=== PATIENT | female | born 1990 | race Caucasian/White ===

== ENCOUNTER 2017-08-02 13:49 | Emergency (ER) | payer OTHER, MEDICAID ==
[~2017-08-02] VITALS: Ht 167.6 cm; Wt 59.0 kg
[~2017-08-02 13:49] MED LIST: BACTRIM DS TAB1 EACH PO; CEPHALEXIN 500500 M3 PO; CIPROFLOXACIN500 M1 PO; FLEXERIL PO; HYDRALAZINE 10M10 MG PO; HYDROCODONE-APA1 TA1 PO; HYDROXYZINE HCL25 M1 PO; KEFLEX250 MG PO; NORCO 5-325 TA1 EAC1 PO; PYRIDIUM200 MG PO
[2017-08-02 13:58] VITALS: BP 109/84
== END 2017-08-02 14:27 | disposition home or self-care (01) ==
LOC: M.ERS 13:49
DX: L30.4 Erythema intertrigo (principal); Z32.02 Encounter for pregnancy test, result negative; F41.9 Anxiety disorder, unspecified; F17.210 Nicotine dependence, cigarettes, uncomplicated; Z90.89 Acquired absence of other organs

== ENCOUNTER 2017-08-11 18:47 | Emergency (ER) | payer BC, OTHER, MEDICAID ==
[~2017-08-11] VITALS: Ht 167.6 cm; Wt 59.0 kg
[2017-08-11 19:53] VITALS: BP 120/66
--- NOTE | 2017-08-12 15:23 | EKG ---
[place] [address] ELECTROCARDIOGRAM REPORT Name: JAVIER ARBOLEDA Room: [facility]#: [id number] Admission: 08/11/17 Attend Phys: Discharge: 08/11/17 Date of : [birth year] Report #: [id number] THIS REPORT FOR: //name// [facility] ED Test Date: 2017-08-11 Test Time: 18:53:10 Pat Name: JAVIER ARBOLEDA Department: Room: Gender: F Vest Baster: 9 : 1990 Requested By: Eladio Linn Order Number: [id number] MD: Marc Moss Measurements Intervals [place] Rate: 70 P: 3 [place]: 124 QRS: 49 QRSD: 79 T: 41 QT: 360 QTc: 389 Interpretive Statements Sinus rhythm Baseline wander in lead(s) V6 Compared to ECG 07/05/2014 10:01:03 Short [place] interval no longer present Electronically Signed On 08-12-2017 15:23:17 CDT by Marc Moss [email or web address] <ELECTRONICALLY SIGNED> By: Marc Moss MD, [facility] 08/12/17 1523 52 52 Marc Moss MD, FACC /EPI
== END 2017-08-11 19:54 | disposition home or self-care (01) ==
LOC: M.ERS 18:47
DX: R07.9 Chest pain, unspecified (principal)

== ENCOUNTER 2017-12-21 02:14 | Emergency (ER) | payer BC, OTHER, MEDICAID ==
[~2017-12-21] VITALS: Ht 167.6 cm; Wt 54.4 kg
[2017-12-21 02:22] VITALS: BP 136/78
[2017-12-21] MEDS ORDERED: PENICILLIN VK250 MG PO (02:31)
[2017-12-21] MEDS ORDERED: NORCO 5-325 TA1 EACH PO (02:31)
== END 2017-12-21 02:41 | disposition home or self-care (01) ==
LOC: M.ERS 02:14
DX: K08.89 Other specified disorders of teeth and supporting structures (principal); F41.9 Anxiety disorder, unspecified; F17.210 Nicotine dependence, cigarettes, uncomplicated

== ENCOUNTER 2017-12-23 10:29 | Emergency (ER) | payer BC, OTHER, MEDICAID ==
[~2017-12-23] VITALS: Ht 167.6 cm; Wt 54.4 kg
[~2017-12-23 10:29] MED LIST changes: +NORCO 5-325 TA1 EACH PO; +PENICILLIN VK250 MG PO
[2017-12-23 10:38] VITALS: BP 100/55
== END 2017-12-23 10:49 | disposition home or self-care (01) ==
LOC: M.ERS 10:29
DX: Z71.1 Person with feared health complaint in whom no diagnosis is made (principal); F17.210 Nicotine dependence, cigarettes, uncomplicated; F41.9 Anxiety disorder, unspecified

== ENCOUNTER 2018-04-21 09:13 | Emergency (ER) | payer BC ==
[~2018-04-21] VITALS: Ht 167.6 cm; Wt 52.6 kg
[2018-04-21] MEDS ORDERED: VALIUM5 MG PO (09:56)
[2018-04-21] MEDS ORDERED: ACETAMINOPHEN-1 EAC1 PO (09:56)
[2018-04-21] MEDS ORDERED: MOBIC15 MG PO (09:56)
[2018-04-21 10:18] VITALS: BP 108/68
== END 2018-04-21 10:19 | disposition home or self-care (01) ==
LOC: M.ERS 09:13
DX: S16.1XXA Strain of muscle, fascia and tendon at neck level, initial encounter (principal); F41.9 Anxiety disorder, unspecified; F17.210 Nicotine dependence, cigarettes, uncomplicated; Z90.49 Acquired absence of other specified parts of digestive tract; W01.0XXA Fall on same level from slipping, tripping and stumbling without subsequent striking against object, initial encounter; Y93.89 Activity, other specified; Y92.89 Other specified places as the place of occurrence of the external cause; Y99.8 Other external cause status

== ENCOUNTER 2018-05-17 01:11 | Emergency (ER) | payer BC ==
[~2018-05-17] VITALS: Ht 167.6 cm; Wt 52.6 kg
[~2018-05-17 01:11] MED LIST changes: +ACETAMINOPHEN-1 EAC1 PO; +MOBIC15 MG PO; +VALIUM5 MG PO
[2018-05-17] MEDS ORDERED: IBUPROFEN 800800 MG PO (02:06)
[2018-05-17 02:19] VITALS: BP 95/60
== END 2018-05-17 02:21 | disposition home or self-care (01) ==
LOC: M.ERS 01:11
DX: S60.211A Contusion of right wrist, initial encounter (principal); F41.9 Anxiety disorder, unspecified; F17.210 Nicotine dependence, cigarettes, uncomplicated; Z98.890 Other specified postprocedural states; W25.XXXA Contact with sharp glass, initial encounter; Y93.89 Activity, other specified; Y92.89 Other specified places as the place of occurrence of the external cause; Y99.8 Other external cause status

== ENCOUNTER 2018-06-17 12:50 | Emergency (ER) | payer OTHER ==
[~2018-06-17] VITALS: Ht 167.6 cm; Wt 49.4 kg
[~2018-06-17 12:50] MED LIST changes: +IBUPROFEN 800800 MG PO
[2018-06-17 13:31] LABS: ABSOLUTE BASOPHILS 0.1 thou/uL (0.0-0.2); ABSOLUTE EOSINOPHILS 0.1 thou/uL (0.0-0.7); ABSOLUTE LYMPHOCYTES 2.2 thou/uL (0.8-5.3); ABSOLUTE MONOCYTES 0.3 thou/uL (0.0-1.2); ABSOLUTE NEUTROPHILS 3.9 thou/uL (1.6-8.1); BASOPHILS 0.7 %; EOSINOPHILS 1.6 %; HEMATOCRIT 39.1 % (37.0-47.0); LYMPHOCYTES 33.6 %; MCHC 33.2 g/dL (28.0-37.0); MCV 81.3 fL (80.0-100.0); MPV 8.4 fl. (7.2-11.1); NUCLEATED RBCS 0 /100WBC; PLATELET COUNT* 322 thou/uL (150-400); POLYS 59.1 %; RDW-CV 15.6 % (10.5-14.5); WBC 6.7 thou/uL (4.0-11.0)
[2018-06-17 13:40] LABS: ANION GAP 6 mmol/L (7-16); BUN 8 mg/dL (7-18); CHLORIDE 105 mmol/L (98-107); CO2 28 mmol/L (21-32); CREATININE 0.9 mg/dL (0.6-1.3); GLUCOSE 85 mg/dL (70-99); POTASSIUM 3.3 mmol/L (3.5-5.1); SODIUM 139 mmol/L (136-145)
[2018-06-17 13:46] LABS: ALBUMIN 3.9 g/dL (3.4-5.0); ALKALINE PHOSPHATASE 41 U/L (46-116); LIPASE 143 U/L (73-393); MAGNESIUM 1.8 mg/dL (1.8-2.4); SGOT 13 U/L (15-37); SGPT 20 U/L (30-65); TOTAL BILIRUBIN 0.5 mg/dL (<0.1-1.0)
[2018-06-17 14:00] LABS: TROPONIN-I LEVEL <0.06 ng/mL (<0.06)
[2018-06-17 14:58] VITALS: BP 111/78
--- NOTE | 2018-06-17 15:01 | EKG ---
[place] [address] ELECTROCARDIOGRAM REPORT Name: NKECHIJAVIER [id number] Admission: 06/17/18 Attend Phys: Discharge: 06/17/18 Date of : [birth year] Report #: [id number] THIS REPORT FOR: //name// [facility] ED Test Date: 2018-06-17 Test Time: 12:55:46 Pat Name: JAVIER ARBOLEDA Department: Room: Gender: F Carriage Feeder: ALFONSO : 1990 Requested By: Haresh Smith Order Number: [id number] MD: Khoi Granado Measurements Intervals [place] Rate: 68 P: -30 [place]: 121 QRS: 52 QRSD: 72 T: 43 QT: 388 QTc: 413 Interpretive Statements Sinus rhythm Compared to ECG 08/11/2017 18:53:10 No significant changes Electronically Signed On 06-17-2018 15:01:41 [facility] by Khoi Granado [email or web address] <ELECTRONICALLY SIGNED> By: Khoi Granado MD, [facility] 06/17/18 1501 1255 1255 Khoi Granado MD, FACC /EPI
== END 2018-06-17 14:58 | disposition home or self-care (01) ==
LOC: M.ERS 12:50
PROVIDERS: Emergency Medicine Emergency Medical Services
DX: R07.89 Other chest pain (principal); F41.9 Anxiety disorder, unspecified; F17.210 Nicotine dependence, cigarettes, uncomplicated; Z98.890 Other specified postprocedural states

== ENCOUNTER 2020-03-01 10:02 | Emergency (ER) | payer OTHER, MEDICAID ==
[~2020-03-01] VITALS: Ht 167.6 cm; Wt 52.2 kg
[2020-03-01 10:52] VITALS: BP 114/66
== END 2020-03-01 10:53 | disposition home or self-care (01) ==
LOC: M.ERS 10:02
DX: N64.89 Other specified disorders of breast (principal); F17.210 Nicotine dependence, cigarettes, uncomplicated; Z90.49 Acquired absence of other specified parts of digestive tract; Z90.89 Acquired absence of other organs

== ENCOUNTER 2021-01-03 01:27 | Emergency (ER) | payer OTHER, MEDICAID ==
[~2021-01-03] VITALS: Ht 167.6 cm; Wt 54.4 kg
[2021-01-03] MEDS ORDERED: AMITRIPTYLINE H25 M2 PO (02:21)
[2021-01-03] MEDS ORDERED: ZOLOFT25 MG PO (02:21)
[2021-01-03 02:40] VITALS: BP 119/77
== END 2021-01-03 02:40 | disposition home or self-care (01) ==
LOC: M.ERS 01:27
DX: F41.1 Generalized anxiety disorder (principal); F43.0 Acute stress reaction; R06.4 Hyperventilation; F17.210 Nicotine dependence, cigarettes, uncomplicated; Z90.89 Acquired absence of other organs

== ENCOUNTER → 2021-05-29 | Emergency (ER) | payer OTHER, MEDICAID ==
[~2021-05-29] VITALS: Ht 167.6 cm; Wt 59.0 kg
[~2021-05-29] MED LIST changes: +AMITRIPTYLINE H25 M2 PO; +MACROBID 100 M100 M2 PO; +PHENAZOPYRIDIN200 M2 PO; +ZOLOFT25 MG PO
[2021-05-29 09:55] VITALS: BP 98/55
[2021-05-29 11:46] LABS: URINE BILIRUBIN NEGATIVE (Negative); URINE BLOOD 3+ (Negative); URINE CLARITY CLEAR; URINE COLOR YELLOW; URINE GLUCOSE-RANDOM NEGATIVE (Negative); URINE KETONES NEGATIVE (Negative); URINE LEUKOCYTES-REFLEX 1+ (Negative); URINE NITRITE-REFLEX NEGATIVE (Negative); URINE PROTEIN NEGATIVE (Negative); URINE UROBILINOGEN 0.2 E.U./dl (0.2-1.0)
[2021-05-29 11:49] LABS: SQUAMOUS 0-3 Few /LPF (0-3); URINE WBC-REFLEX 0-5 Rare /HPF (0-5)
[2021-05-29 11:50] LABS: BACTERIA-REFLEX 1-9 Few /HPF (None Seen); CASTS None Seen /LPF (None Seen); CRYSTALS None Seen /LPF (None Seen)
== END ==
LOC: M.ERS 09:30
PROVIDERS: Nurse Practitioner Family
DX: N39.0 Urinary tract infection, site not specified (principal); F41.9 Anxiety disorder, unspecified; F17.210 Nicotine dependence, cigarettes, uncomplicated; Z90.89 Acquired absence of other organs; Z90.49 Acquired absence of other specified parts of digestive tract